=== PATIENT | female | born 2000 | race Two or more races ===

== ENCOUNTER 2025-06-23 09:37 | Emergency (ER) | payer OTHER ==
[~2025-06-23] VITALS: Ht 160 cm; Wt 61.4 kg
[2025-06-23 09:43] VITALS: BP 96/64; PULSE 74; RESP 18; TEMP 98.2; O2SAT 99
[2025-06-23] MEDS ORDERED: ACET-3385 PO (09:44)
[2025-06-23 10:10] LABS: PLATELET COUNT (AUTO) 287 K/uL (150-450); RED BLOOD CELL COUNT(AUTO) 4.73 MIL/uL (4.00-5.20); RED CELL DISTRIBUTION WIDTH 12.3 % (11.5-14.5); WHITE BLOOD COUNT (AUTO) 9.7 K/uL (4.5-11.0)
[2025-06-23 10:15] LABS: CALCIUM, TOTAL 8.7 mg/dL (8.8-10.5); CREATININE 0.71 mg/dL (0.60-1.30); GLOMERULAR FILTR. RATE CALC > 60 mL/min (>60); GLUCOSE,RANDOM 112 mg/dL (70-110); SODIUM SERUM 140 mmol/L (136-145); UREA NITROGEN, BLOOD 11 mg/dL (7-18)
[2025-06-23 10:29] LABS: ASPARTATE AMINOTRANSFERASE 16 U/L (15-37); HCG,QUANTITATIVE < 1 mIU/mL (0-6); TOTAL PROTEIN, SERUM 7.5 g/dL (6.4-8.2)
[2025-06-23 11:49] LABS: APPEARANCE,URINE CLEAR (CLEAR); GLUCOSE, URINE (UA) NEGATIVE (NEGATIVE); LEUKOCYTE ESTERASE ,URINE NEGATIVE (NEGATIVE); NITRATE,URINE NEGATIVE (NEGATIVE); OCCULT BLOOD,URINE SMALL (NEGATIVE); SPECIFIC GRAVITIY, URINE 1.014 (1.003-1.030)
[2025-06-23 12:11] LABS: SQUAMOUS EPITHELIAL CELL,UR Few /LPF (None Seen)
[2025-06-23] MEDS: KETOROLAC TROMETHAMINE 60 MG/2 ML VIAL IM ONE (12:15)
[2025-06-23] MEDS: ACETAMINOPHEN 500 MG TABLET PO ONE (12:15)
[2025-06-23] MEDS ORDERED: IBUP-1554 PO (14:35)
[2025-06-23] MEDS ORDERED: ACET-66 PO (14:35)
== END 2025-06-23 14:44 | disposition home or self-care (01) ==
LOC: EMS 09:37
DX: N83.201 Unspecified ovarian cyst, right side (principal)
CPT/HCPCS: 99285; 74176; 76856; 80048; 80076; 81001; 82150; 83690; 84702; 85025; 36415; 96372; J1885

== ENCOUNTER 2025-08-03 22:47 | Emergency (ER) | payer SELFPAY ==
[~2025-08-03] VITALS: Ht 160 cm; Wt 61.4 kg
[~2025-08-03 22:47] MED LIST: ACET-3385 PO; ACET-66 PO; IBUP-1554 PO
[2025-08-03 23:02] VITALS: BP 106/79; PULSE 82; RESP 16; TEMP 98.2; O2SAT 100
[2025-08-03 23:57] LABS: PLATELET COUNT (AUTO) 310 K/uL (150-450); RED BLOOD CELL COUNT(AUTO) 4.63 MIL/uL (4.00-5.20); RED CELL DISTRIBUTION WIDTH 12.6 % (11.5-14.5); WHITE BLOOD COUNT (AUTO) 8.9 K/uL (4.5-11.0)
[2025-08-03 23:59] LABS: CALCIUM, TOTAL 9.4 mg/dL (8.8-10.5); CREATININE 0.93 mg/dL (0.60-1.30); GLOMERULAR FILTR. RATE CALC > 60 mL/min (>60); GLUCOSE,RANDOM 114 mg/dL (70-110); SODIUM SERUM 138 mmol/L (136-145); UREA NITROGEN, BLOOD 14 mg/dL (7-18)
[2025-08-04 00:11] LABS: HCG,QUANTITATIVE < 1 mIU/mL (0-6)
[2025-08-04 00:18] LABS: APPEARANCE,URINE CLEAR (CLEAR); GLUCOSE, URINE (UA) NEGATIVE (NEGATIVE); LEUKOCYTE ESTERASE ,URINE MODERATE (NEGATIVE); NITRATE,URINE POSITIVE (NEGATIVE); OCCULT BLOOD,URINE TRACE (NEGATIVE); SPECIFIC GRAVITIY, URINE 1.022 (1.003-1.030)
[2025-08-04] MEDS: KETOROLAC TROMETHAMINE 30 MG/ML VIAL IM ONE (00:27)
[2025-08-04 00:46] LABS: SQUAMOUS EPITHELIAL CELL,UR Few /LPF (None Seen)
[2025-08-04] MEDS ORDERED: CEPH-558 PO (01:56)
[2025-08-04] MEDS: CEPHALEXIN MONOHYDRATE 500 MG CAPSULE PO ONE (02:30)
== END 2025-08-04 02:31 | disposition home or self-care (01) ==
LOC: EMS 22:56
DX: N83.201 Unspecified ovarian cyst, right side (principal); N39.0 Urinary tract infection, site not specified; R10.20 Pelvic and perineal pain unspecified side
CPT/HCPCS: 99285; 80048; 81001; 83690; 84702; 85025; 87077; 87086; 36415; 76856; 96372; J1885; 87186